=== PATIENT | male | born 1990 | race Two or more races ===

== ENCOUNTER 2016-10-25 23:33 | Emergency (ER) | payer SELFPAY ==
--- NOTE | 2016-10-28 11:46 | ER ---
DATE SEEN: 10/25/2016 HISTORY OF PRESENT ILLNESS: This 26-year-old pleasant Citizen [place] gentleman, attended by his , comes in because he had 3 weeks ago slipped on the ice and strained his right superior-posterior thigh and inferior buttock. Has moderate discomfort. On a scale of 1 to 10, about 4 to 6. It is painful when he walks sometimes. He walks with a slight limp. Denies compromised sensation, previous lower back injury, or serious illness. No diabetes, heart disease, or high blood pressure. MEDICATIONS: None. ALLERGIES: No allergies. SOCIAL HISTORY: He is a nonsmoker. Does not drink alcohol, except for socially, infrequently. The patient works on [employer]. 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 No unusual lifting or unusual activity recently. REVIEW OF SYSTEMS: Negative. PHYSICAL EXAMINATION: VITAL SIGNS: Blood pressure 126/76, heart rate 77, respirations 16, oxygen saturation 100%, and temperature is 36.8 degrees centigrade. GENERAL: Alert, well-muscled, youthful, healthy-looking man, who is in no acute distress. HEENT: PERRLA intact. Pharynx without abnormality. LUNGS: Without rales, rhonchi, or wheezes. HEART: S1, S2. No murmur. No irregular rate and rhythm. ABDOMEN: Soft. No guarding. No abdominal discomfort. No hernia. No CVA percussion tenderness. MUSCULOSKELETAL: No spinous process tenderness to his back. Straight leg raise causes moderate discomfort in the right posterior proximal thigh. ROM of right hip is decreased by 15 degrees flexion. She has no discomfort with ROM evaluation of the left lower extremity. No dysesthesia left and right proximal thigh and buttocks. S3, S2, and S4 sensory distribution posterior is intact, S1 is intact. The remainder of the anterior leg sensation is intact also. Deep tendon reflexes normoactive knee jerks, ankle jerks. Cranial nerves 2 through 12 intact. Oriented x3. Gait is appropriate. ASSESSMENT: Muscle strain, right buttock. Pressure on the inferior gluteus yung and also proximal hamstring results on moderate discomfort. No shortening of the limb. Muscle strain to the most proximal hamstring. Reassured. Tylenol 1000 mg, ibuprofen 600 mg take together every 6 hours p.r.n. pain. Follow up with doctor as needed. /[id number] USHA FARLEY
== END 2016-10-26 01:35 | disposition home or self-care (01) ==
LOC: FB.ED 23:33
CPT/HCPCS: 99283

== ENCOUNTER 2018-01-25 22:35 | Emergency (ER) | payer SELFPAY ==
[2018-01-25 22:53] VITALS: BP 143/84
[2018-01-25] MEDS ORDERED: Ketorolac 10 MG Tab PO ONE (23:22)
[2018-01-25] MEDS ORDERED: Cyclobenzaprine 10 MG Tab PO ONE (23:22)
--- NOTE | 2018-01-25 23:55 | ER ---
DATE SEEN: 01/25/2018 CHIEF COMPLAINT: Back pain. HISTORY OF PRESENT ILLNESS: This is a 27-year-old male with back pain for almost 4 weeks now with no trauma. Pain is in the right buttock area, radiates to the right leg sometimes. Moderate to severe, worse at night. Chiropractic manipulation has not been helpful. REVIEW OF SYSTEMS: Complains of right groin and testicular pain on and off. Denies dysuria, frequency. No constipation, nausea, vomiting. No fever. MEDICATIONS: Reviewed. ALLERGIES: Reviewed. PHYSICAL EXAMINATION: VITAL SIGNS: Normal blood pressure, temperature 98.6. MUSCULOSKELETAL: Low back, no obvious swelling. There is no tenderness to palpation of the lumbar spine. NEUROLOGIC: Gait and station normal. GENITALIA: Normal external genitalia with no tenderness or swelling. IMPRESSION: 1. Acute low back pain. 2. Testicular pain. PLAN: 1. Obtain a urine for GC and chlamydia. 2. Treat the back pain with Toradol and Flexeril, and I recommended physical therapy in the office. Follow up on Tuesday, sooner if needed. /[id number] TRUDY/MARKIE
[2018-01-28 05:17] LABS: CHLAMYDIA TRACHOMATIS, NAA Negative (Negative); NEISSERIA GONORRHOEAE, NAA Negative (Negative)
== END 2018-01-25 23:35 | disposition home or self-care (01) ==
LOC: FB.ED 22:35
DX: M54.5 Low back pain (principal); N50.819 Testicular pain, unspecified
CPT/HCPCS: 87491; 87591; 99283; A9270

== ENCOUNTER 2019-03-01 16:48 | Emergency (ER) | payer SELFPAY ==
[2019-03-01] MEDS ORDERED: Diphtheria,Pertussis(Acell),Tetanus Vaccine 0.5 ML SDV IM ONE (17:08)
[2019-03-01] MEDS ORDERED: Ketorolac 60 MG/2 ML SDV IM ONE (17:08)
[2019-03-01 17:53] VITALS: BP 164/106; PULSE 57
--- NOTE | 2019-03-01 18:43 | EDM.PDOC ---
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 Slight amount of blood, but mostly he wrapped it up and came straight to the ER. Hurts significantly. No other injuries or problems, unsure when last tetanus was. No medical problems. right index finger Pain Score (Numeric/FACES): 4 - Related Data Allergies Allergy/AdvReac Type Severity Reaction Status Date / Time No Known Allergies Allergy Verified 01/25/18 22:52 Home Meds: Home Meds NK [No Known Home Meds] 10/26/16 [History] Past Medical History Cardiovascular History: Reports: Heart Murmur Psychiatric History: Reports: Anxiety - Past Surgical History Cardiovascular Surgical History: Reports: None GI Surgical History: Reports: Appendectomy Social & Family History - Family History Family Medical History: Noncontributory - Tobacco Use Smoking Status *Q: Light Tobacco Smoker Years of Tobacco use: 10 Packs/Tins Daily: 0.2 - Caffeine Use Caffeine Use: Reports: Coffee, Energy Drinks, Soda Other Caffeine Use: [employer] energy drinks - Alcohol Use Alcohol Use History: No - Recreational Drug Use Recreational Drug Use: No ED ROS GENERAL - Review of Systems Review Of Systems: ROS reveals no pertinent complaints other than HPI. ED EXAM, SKIN/RASH Exam: See Below Text/Narrative:: general: Alert, extremely anxious male but otherwise nontoxic appearing. Left hand and arm appear normal. Right hand has a couple of very superficial hemostatic, thin laceration grey just barely through the skin, one partially clipping through the nail on the medial side of the index finger, total length .6cm. He has good circulation and there is no significant bleeding once bandage is removed. He is completely normal motor function of his entire hand and no deficits in sensation. no other injuries are noted Course - Vital Signs Text/Narrative:: after viewing the wound, the finger was placed in Hibiclens and allowed to soakfor several minutes. I gave him a shot of IM Toradol and we also updated his tetanus. no neurovascular deficits After the wound had been soaking for some time, it was carefully rinsed with sterile saline and noted to be superficial with slight amount of nail involvement. Total laceration length less than 1 cm. Dermabond was applied over the wound. Wound was bandaged. 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 Discussed signs and symptoms of infection and generalized wound care, okay to discharge to home. Last Recorded V/S: Last Vital Signs Temp 36.6 C 03/01/19 16:50 Pulse 57 L 03/01/19 16:50 Resp 18 03/01/19 16:50 BP 164/106 H 03/01/19 16:50 Pulse Ox 99 03/01/19 16:50 - Orders/Labs/Meds Orders: Active Orders 24 hr Category Date Time Status Vaccines to be Administered [RC] PER UNIT ROUTINE Care 03/01/19 17:11 Active Meds: Medications Discontinued Medications Generic Name Dose Route Start Last Admin Trade Name Freq PRN Reason Stop Dose Admin Diphtheria/Tetanus/Acell Pertussis 0.5 ml 03/01/19 17:08 03/01/19 17:20 Adacel IM 03/01/19 17:09 0.5 ml .ONCE ONE Administration Ketorolac Tromethamine 60 mg 03/01/19 17:08 03/01/19 17:22 Toradol IM 03/01/19 17:09 60 mg ONETIME ONE Administration Departure - Departure Time of Disposition: 18:41 Disposition: Home, Self-Care 01 Condition: Good Clinical Impression: Laceration - Discharge Information *PRESCRIPTION DRUG MONITORING PROGRAM REVIEWED*: Not Applicable *COPY OF PRESCRIPTION DRUG MONITORING REPORT IN PATIENT THAD: Not Applicable Instructions: Stitches, [place], or Adhesive Wound Closure, [id number] Referrals: PCP,None [Primary Care Provider] - Forms: ED Department Discharge Additional Instructions: leave bandage applied in ED in place until tomorrow night. After this, keep covered while working. if developed increased pain, swelling in the end of her fingertip, any swelling in the joint or pain or redness that streaking to her hand, should be reevaluated by a physician. The Dermabond will come off on its own in about 5 days. Do not scrub off. The nail may need to be trimmed carefully as it grows back out but will be normal eventually. Tetanus was updated today - My Orders Last 24 Hours: My Active Orders 03/01/19 17:11 Vaccines to be Administered [RC] PER UNIT ROUTINE - Assessment/Plan Last 24 Hours: My Active Orders 03/01/19 17:11 Vaccines to be Administered [RC] PER UNIT ROUTINE
== END 2019-03-01 18:57 | disposition home or self-care (01) ==
LOC: FB.ED 16:48
DX: S61.310A Laceration without foreign body of right index finger with damage to nail, initial encounter (principal); W28.XXXA Contact with powered lawn mower, initial encounter
CPT/HCPCS: 12001; 12011; 90471; 90715; 96372; 99282; 99283; J1885

== ENCOUNTER 2021-06-29 17:01 | Emergency (ER) | payer SELFPAY ==
[2021-06-29 17:44] VITALS: BP 130/81; PULSE 70
--- NOTE | 2021-06-29 19:07 | EDM.PDOC ---
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 Left Hand Pain Score (Numeric/FACES): 6 - Related Data Allergies Allergy/AdvReac Type Severity Reaction Status Date / Time No Known Allergies Allergy Verified 01/25/18 22:52 Home Meds: Home Meds NK [No Known Home Meds] 10/26/16 [History] Past Medical History - Past Health History Medical/Surgical History: Denies Medical/Surgical History Cardiovascular History: Reports: Heart Murmur Psychiatric History: Reports: Anxiety - Infectious Disease History Infectious Disease History: Reports: None - Past Surgical History Cardiovascular Surgical History: Reports: None GI Surgical History: Reports: Appendectomy Social & Family History - Family History Family Medical History: No Pertinent Family History - Tobacco Use Tobacco Use Status *Q: Never Tobacco User - Caffeine Use Caffeine Use: Reports: Coffee, Energy Drinks, Soda Other Caffeine Use: [employer] ED ROS GENERAL - Review of Systems Review Of Systems: See Below Constitutional: Reports: No Symptoms HEENT: Reports: No Symptoms Respiratory: Reports: No Symptoms Cardiovascular: Reports: No Symptoms Endocrine: Reports: No Symptoms GI/Abdominal: Reports: No Symptoms : Reports: No Symptoms Musculoskeletal: Reports: No Symptoms Skin: Reports: Wound Neurological: Reports: No Symptoms Psychiatric: Reports: No Symptoms Hematologic/Lymphatic: Reports: No Symptoms Immunologic: Reports: No Symptoms ED EXAM, SKIN/RASH Exam: See Below Exam Limited By: No Limitations General Appearance: Alert, WD/WN, No Apparent Distress Extremities: Other (pleasant, cooperative, 8 cm lac along long axis of thenar eminence of L hand, no fb's, 2% lido with epi with #30 needle, closed with 3-0 Prolene x 6, good apposition margins) Neurological: Alert, Oriented, CN II-XII Intact, Normal Cognition, Normal Gait, No Motor/Sensory Deficits Psychiatric: Normal Affect, Normal Mood Lymphatic: No Adenopathy Comments: tolerated well, pt cautioned to be careful not to put pressure on wound Course - Vital Signs Last Recorded V/S: Last Vital Signs Temp 36.6 C 06/29/21 17:18 Pulse 70 06/29/21 17:18 Resp 18 06/29/21 17:18 BP 130/81 06/29/21 17:18 Pulse Ox 98 06/29/21 17:18 Departure - Departure Time of Disposition: 18:53 Disposition: Home, Self-Care 01 Condition: Good Clinical Impression: Laceration of hand, left - Discharge Information *PRESCRIPTION DRUG MONITORING PROGRAM REVIEWED*: Not Applicable *COPY OF PRESCRIPTION DRUG MONITORING REPORT IN PATIENT THAD: Not Applicable Instructions: Laceration Care, Adult Referrals: Gianluca Sigala MD [Primary Care Provider] - Additional Instructions: Keep clean and dry and covered with a dressing. Avoid putting pressure on the laceration. While infection is unlikely, see a physician the same day for any increase in redness, swelling, pain, warmth, fever or drainage. See your doctor in one week to remove sutures. Sepsis Event Note (ED) - Evaluation Sepsis Screening Result: No Definite Risk - Focused Exam Vital Signs: Vital Signs Temp Pulse Resp BP Pulse Ox 06/29/21 17:18 36.6 C 70 18 130/81 98
== END 2021-06-29 19:13 | disposition home or self-care (01) ==
LOC: FB.ED 17:01
DX: S61.412A Laceration without foreign body of left hand, initial encounter (principal); W26.0XXA Contact with knife, initial encounter; Y92.79 Other farm location as the place of occurrence of the external cause
CPT/HCPCS: 12004; 99282-25